=== PATIENT | male | born 1945 | race Caucasian/White ===

== ENCOUNTER 2021-08-28 18:37 | Emergency (ER) | payer OTHER ==
[~2021-08-28] VITALS: Ht 198.1 cm; Wt 97.5 kg
[2021-08-28 18:42] VITALS: BP 152/80
== END 2021-08-28 23:53 ==
LOC: ER 18:37
PROVIDERS: Emergency Medicine
DX: U07.1 COVID-19 (principal); F02.80 Dementia in other diseases classified elsewhere, unspecified severity, without behavioral disturbance, psychotic disturbance, mood disturbance, and anxiety

== ENCOUNTER 2021-08-28 19:15 | Inpatient (IN) | payer OTHER ==
[~2021-08-28] VITALS: Ht 193 cm; Wt 107.0 kg
--- NOTE | 2021-08-29 03:29 | NUR ---
Arrived on the [facility] floor from [facility] accompanied by x1 Staff via wheel chair, transferred to bed 518a, ambulated the 4-5 steps from w/c to bed. Admission DX Unspecified Dementia wiath Behavior Disturbance. Patient is a danger to both himself and others. A&Ox1 to self only. Patient comes from home for agitation and abression toward his , high anxiety. Regular diet, walks independently, may need to use a walker for safety. DNR, His power of transactional attorney is Vannessa Tan, his spouse [phone]. Covid19 PCR in the ER was negative. Great Toes bilat have wounds. No other skin issues noted. Upper denture with patient. Quite hard of hearing, but does not have facundo aides with him. Reports feels safe at home. Will be a high fall risk, and fall safety protocol in place. Bed in low position, bed alarm set. Will continue to monitor for safety and conmfort.
[2021-08-29 09:20] VITALS: BP 115/73
--- NOTE | 2021-08-29 11:00 | NUR ---
Assess due to admit to [facility] with dementia, combative behaviors. Hx anxiety, depression, bipolar, schizophrenia, HLD, GERD, covid. Healthy wt status BMI 26.8 and has eaten 100% of first meal. Did note pt also with bilateral great toe ulcers. Will follow wt and intake for adequacy, otherwise low nutrition risk
[2021-08-29 11:15] VITALS: BP 115/73
--- NOTE | 2021-08-29 12:57 | NUR ---
WOUND CONSULT: THE PATIENT HAS WOUNDS TO THE BILATERAL GREAT TOES. BOTH TOES HAVE AN ABNORMAL VIRIDIANA PROMINENCE. THIS IS MORE PROMINENT ON THE RIGHT. AND PRESSURE IS THE LIKLY ETIOLOGY. THERE IS SOME ERYTHEMA TO THE LEFT GREAT TOE. NO ERYTHEMA ON THE RIGHT. THERE IS A CALLOUS TO THE PERIWOUND. RECOMMENDATIONS; -FOR NOW APPLY AQUACEL AG, WRAP WITH A 2" ROLLED GAUZE, SECURED WITH TAPE. RN PRESENT.
--- NOTE | 2021-08-29 12:58 | NUR ---
RESUMMED CARE FROM OVERNIGHT SHIFT THIS AM, PATIENT IN ROOM LYING QUIET. PATIENT ALERT TO SELF AND YEAR AND MONTH, PATIENT CALM COOPERATIVE. PATIENT ATE BREAKFAST TOOK MEDICATION WITHOUT INCIDENCE. PATIENT DENIES SI/HI/AH/VH AT PRESENT. PATIENTS ABDOMEN SOFT BOWEL SOUNDS PRESENT PATIENTS LUNGS CLEAR. PATIENT HAS SMALL ULCER ON BOTH BIG TOE, WOUND CARE CAME AND BANDAGED TOES. PATIIENT HAS JOINT DEFORMITIES OF BOTH FEET; PATIENT HAS NOT DISPLAYED ANY BEHAVIORS. WILL CONTINUE TO MONITOR PATIENT FOR SAFETY AND BEHAVIORS.
[2021-08-29 13:24] LABS: ABSOLUTE NEUTROPHILS 4.7 thou/uL (1.4-8.2); BASOPHILS 0.4 % (0.0-2.0); EOSINOPHILS 0.3 % (0.0-3.0); HEMATOCRIT 37.7 % (42.0-52.0); HEMOGLOBIN 12.9 gm/dL (14.0-18.0); LYMPHOCYTES 13.4 % (24.0-44.0); MCHC 34.2 g/dL (28.0-37.0); MCV 90.6 fL (80.0-100.0); MONOCYTES 11.9 % (1.0-8.0); PLATELET COUNT 196 thou/uL (150-400); RBC 4.16 mil/uL (4.50-6.00); RDW 13.8 % (10.5-14.5); WBC 6.4 thou/uL (4.0-11.0)
[2021-08-29 13:44] LABS: ALBUMIN 3.1 g/dL (3.4-5.0); ANION GAP 12 mmol/L (7-16); BUN 24 mg/dL (7-18); CALCIUM 8.9 mg/dL (8.5-10.1); CHLORIDE 100 mmol/L (98-107); CHOLESTEROL 122 mg/dL (<200); CO2 26 mmol/L (21-32); CREATININE 1.6 mg/dL (0.7-1.3); GLUCOSE 167 mg/dL (74-106); HDL CHOLESTEROL 61 mg/dL (>40); LDL CHOLESTEROL 40 mg/dL (<100); POTASSIUM 3.4 mmol/L (3.5-5.1); SGOT 19 U/L (15-37); SGPT 26 U/L (30-65); SODIUM 138 mmol/L (136-145); TOTAL BILIRUBIN 0.5 mg/dL (0.2-1.0); TRIGLYCERIDE 109 mg/dL (<150); VLDL 22 mg/dL (<40)
[2021-08-29 19:17] VITALS: BP 122/75
--- NOTE | 2021-08-30 02:54 | NUR ---
ASSUMED CARE ON 08/29/21 @ 1900, A&OX3-4, NOTED TO BE HARD OF HEARING AND DOES NOT HAVE A HEARING AIDE. WEARS A TOP DENTURE. BREATH SHOUNDS CTA BILAT, S1S2 NOTED, ABD N X 4Q, REPORTS BM ON 08/29. DRESSING ON GREAT TOES BILAT C/D/I. LOW FALL RISK AND AMBULATES WITH A FAIRLY STEADY GAIT EVEN WITH GREAT TOES COMPROISED. BED IN LOW POSITION, WILL CONTINUE TO MONITOR FOR SAFETY AND COMFORT PER UNIT PROTOCOL.
[2021-08-30 05:07] LABS: GLYCOHEMOGLOBIN (HGB A1C) 5.4 % (4.8-5.6)
[2021-08-30 09:26] VITALS: BP 110/63
--- NOTE | 2021-08-30 13:25 | NUR ---
REINALDO and Dr. Nickerson attempted to contact the Pt's , Vannessa. There was no answer, a voicemail was left requesting a call back.
--- NOTE | 2021-08-30 13:39 | NUR ---
Wants his shoes. Obtained from locker, laces removed and shoes secured with zip ties. Alert and orientated X3. Denies SI/HI. Breath sounds clear. Open mouth breathing with ambulation, ceases when sitting down. Reg HR auscultated. Color pink with brisk capillary refill and palpable peripheral pulses. +1-[address] edema [address] lower extremities. Dr. Osborne notified of K+ of 3.4. Lasix and 40meq of KCL given PO without difficulty. Independent with voiding. Active bowel sounds over soft, rounded abdomen. States last BM was yesterday. Ulcers to top of great toes, cleaned and dressed by wound care team. Ambulates with regular, steady gait.
--- NOTE | 2021-08-30 15:11 | NUR ---
SW met with the Pt and completed a SLUMS. Pt scored a 10/30 on the SLUMS
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
[2021-08-30 19:21] VITALS: BP 131/82
--- NOTE | 2021-08-30 21:39 | NUR ---
At onset of retail shift supervisor pt was resting in bed asleep. This shift pt was alert and oriented x3. Insight into situation appears slighlty limited. Pt stated he is here because "they wanted to me to come here." Pt is very hard of hearing. Pt was compliant with medication. Pt was calm, pleasant and cooperative. Affect was slightly constricted but made appropriate eye contact. Speech was clear and pt answered questions appropriately. Denied SI, HI and AVH. Pt is high fall risk; fall precautions are in place. Will continue to monitor.
[2021-08-31 10:23] VITALS: BP 139/74
--- NOTE | 2021-08-31 15:32 | NUR ---
Patient is ax0x3, calm, cooperative, and pleasant, ate breakfast in bed, then participate in the group meeting, sat in the dining room, then go back to bedroom. RN changed the dressing on big toe bilaterally. Patient then go back to dining room waiting for dinner to come, good appetite. No pain. voided per toilet, had a bm yesterday, walking without walker.
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
[2021-08-31 19:46] VITALS: BP 117/63
--- NOTE | 2021-08-31 22:15 | NUR ---
At onset of application services manager pt was resting in bed awake. This shift pt was oriented to self, place, and date. Insight into situation is limited. Pt was calm, pleasant, cooperative with care. Compliant with medication and vital signs. Pt requested something to help with left ear pain and tooth pain. Pt stated he has a "couple bad teeth" and "an infected ear." Pt received tylenol for the pain. Pt denied SI, HI and AVH. Pt is low fall risk. Will continue to monitor.
[2021-09-01 09:17] VITALS: BP 141/63
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
--- NOTE | 2021-09-01 13:31 | NUR ---
PATIENT ALERT AND ORIENTED X3 TODAY. WHEN QUESTIONED WHY HE IS IN THE HOSPITAL SEEMS RELUCTANT TO ANSWER. COOPERATIVE WITH MEDS AND ACTIVITIES. DENIES PAIN AFTER TYLENOL GIVEN THIS AM FOR TOOTH/EARACHE. DR AWARE OF C/O EAR PAIN DURING ROUNDS THIS AM.AMBULATING WITHOUT DIFFICULTY. VSS.DREESING CHANGE DONE TO BILAT TOES
[2021-09-01 20:03] VITALS: BP 146/74
--- NOTE | 2021-09-02 00:36 | NUR ---
At onset of shift change pt was sitting in day room watching TV. This shift pt was alert and oriented x3. Insight into situation is limited or pt is guarded. Pt was compliant with vital signs and medications. Pt continues to complain of tooth pain and left ear pain; received tylenol at bed time. Pt denied SI, HI and AVH. Pt is low fall risk. Up ad oswald and independent with ADLs. Will continue to monitor.
[2021-09-02 07:30] VITALS: BP 96/64
--- NOTE | 2021-09-02 15:34 | NUR ---
PT ALERT AND ORIENTED TIMES THREE, FALT AFFECT VERY PICAYUNE. VSS. PT DENIES SI/HI/AH/VH/PAIN/SOA. PT TOLERATES MEDS AND MEALS. PT HAS LITTLE INTERCATION WITH STAFF AND PEERS. PT ATTENDED GROUPS TODAY. WILL CONTINUE TO MONITOR.
[2021-09-02 19:08] VITALS: BP 108/59
--- NOTE | 2021-09-03 05:26 | NUR ---
patient aox3 forgetful at times. patient is orutsararmiut. patient isolative this shift.patient had a flat affect, poor eye contact, poor grooming and hygiene. patient encouraged fluids. patient is continent this shift. patient ambulates with steady gaits. patient in bed asleep at this time breathing regular and unlaboured.
[2021-09-03 09:23] VITALS: BP 122/74
[2021-09-03 09:40] VITALS: BP 122/74
--- NOTE | 2021-09-03 12:01 | NUR ---
RESUMMED CARE FROM OVERNIGHT SHIFT THIS AM, PATIENT IN DAY ROOM QUIET WAITING FOR BREAKFAST. PATIENT ALERT ORIENTED TIMES 2-3 PATIENT DENIES SI/HI/AH/VH AT PRESENT. PATIENT TOOK MEDICATION WITHOUT INCIDENCE; PATIENT WOUNDS ON BOTH BIG TOE CHANGED. PATIENTS ABDOMEN SOFT BOWEL SOUNDS PRESENT, PATIENTS LUNGS CLEAR. PATIENT CALM COOPERATIVE HAS NOT DISPLAYED ANY BEHAVIORS; WILL CONTINUE TO MONITOR PATIENT FOR SAFETY AND BEHAVIORS.
--- NOTE | 2021-09-03 17:44 | NUR ---
Referral sent to the following: [facility]- no beds
[2021-09-03 22:33] VITALS: BP 111/59
--- NOTE | 2021-09-04 05:15 | NUR ---
PT HAS BEEN PLEASANT AND COOPERATIVE THIS SHIFT. HE C/O BACK PAIN EARLIER IN THE NIGHT. TYLENOL GIVEN WITH GOOD RELIEF. DRESSINGS CHANGED TO BILATERAL LARGE TOE ULCERS. PT SLEPT FROM AROUND 2200 UNTIL 0430. HE IS BACK IN BED AT THIS TIME, TRYING TO GET SOME MORE SLEEP. WILL CONTINUE TO MONITOR FURTHER.
--- NOTE | 2021-09-04 09:37 | NUR ---
Followup: remains on [facility] for dementia/behaviors. Continues on regular diet, eating 75-100% of meals. Wound care follows for bilateral great toe diabetic ulcers. Wt stable. Remains low nutrition risk
[2021-09-04 09:53] VITALS: BP 107/65
--- NOTE | 2021-09-04 11:51 | NUR ---
SW sent referrals to the following: [facility]
[2021-09-04 12:30] VITALS: BP 107/65
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
--- NOTE | 2021-09-04 17:03 | NUR ---
REINALDO and Dr. Nickerson called Pt's /DPOA for a family meeting. Vannessa did not answer. A VM was unable to be left due to the voicemail box being full
--- NOTE | 2021-09-04 17:33 | NUR ---
Resummed care @0700; Patient was located in his room, resting comfortably in bed; No S/O acute distress noted; A&O*2; V/S present hypotensive - otherwise stable; Patient denies SI/HI/AVH; Patient complaint of lower back pain, and bilateral great toe tenderness; Patient has 2 bilateral ulcers to the great toes- drsg intact and D/C/I - Cellulitis present; CHAR DUST CLEANER AND SALVAGER notes during assessment Trace bilateral pedal edema; Patient presents [id number]; Patient is heard of hearing, causing communication barrier unless talking right into patients ear; Patient verbalized reading lips makes his hearing better, but everyone always wears the masks. Patient denied SOB-CP; Patient has been particpating in groups and eating meals; Patient is marked as High-Fall risk, although patient is up ad-oswald without difficulties; patient uses furniture to ambulate, and refuses to use a walker per safety; Will continue to monitior per [facility] Protocol;
[2021-09-04 19:16] VITALS: BP 107/53
[2021-09-04 20:07] VITALS: BP 107/58
--- NOTE | 2021-09-04 21:15 | NUR ---
RESUMMED CARE FROM DAY SHIFT THIS EVENING PATIENT IN ROOM LYING QUIETLY. PATIENT ALERT TIMES 3 PATIENT CALM COOPERATIVE, DENIES SI/HI/AH/VH AT PRESENT. PATIENTS ABDOMEN SOFT BOWEL SOUNDS PRESENT PATIENTS LUNGS CLEAR. PATIENT DENIES DEPRESSION OR ANXIETY, PATIENT STATES HE FEELS BETTER. PATIENTS ULCER ON BOTH BIG TOES LOOKING BETTER THEN ON ADMISSION. PATIENT HAS NOT DISPLAYED ANY BEHAVIORS; WILL CONTINUE TO MONITOR PATIENT FOR SAFETY AND BEHAVIORS.
--- NOTE | 2021-09-05 06:33 | NUR ---
PT RESTED WELL THROUGH THE NIGHT.WOUND CARE TO BILATERAL TOES COMPLETED PER ORDERS,TOLERATED.NO SIGNIFICANT CHANGES NOTED AT THIS TIME.
[2021-09-05 10:22] VITALS: BP 95/61
--- NOTE | 2021-09-05 12:04 | NUR ---
PATIENT HAS BEEN UP, AND OUT ON THE UNIT, AMBULATE WITH SLOW STEADY GAIT. PATIENT TOOK ALL MEDICATION WHOLE WITHOUT DIFFICULTY, HE IS EATING MEALS, AND DRINKING FLUID WELL. PATIENT DENIES SUICIDAL/HOMICIDAL IDEATION, HE DENIES DEPRESSION/ANXIETY. PATIENT REPORTS ADEQUATE SLEEP, LAST BOWEL MOVEMENT WAS THIS MORNING PER PATIENT. DRESSING CHANGED TO SHOSHANA GREAT TOE PER ORDER. AFFECT IS BRIGHT, MOOD IS EUTHYMIC. NO SIGN OF ACUTE DISTRESS NOTED AT THIS TIME, WILL MONITOR FOR SAFETY.
--- NOTE | 2021-09-05 16:40 | NUR ---
Referral sent to the following: [facility] and Re[facility]
[2021-09-05 19:15] VITALS: BP 122/72
[2021-09-05 19:25] VITALS: BP 122/72
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
--- NOTE | 2021-09-06 02:19 | NUR ---
PATIENT CARE WAS RESUMED AT 1900. HE WAS IN HIS ROOM AND HE AMBULATES. ABLE TO VERBALIZE NEEDS. LUNGS ARE CLEAR BS ACTIVE X4 QUADS. HE DENIES PAINS/SI/AVH/HI. HE TOOK HIS MEDS WHOLE. DENTURE IN CUP. BED IS LOCKED, LOW AND ALARMED. Q12 MINUTES CHECK IS ONGOING.
[2021-09-06 09:47] VITALS: BP 95/56
--- NOTE | 2021-09-06 10:44 | NUR ---
Alert and orientated to person, place. Denies SI/HI. Calm and compliant. Breath sounds clear. Reg HR auscultated. Color pink with brisk capillary refill and palpable peripheral pulses. +1 edema in ankles. Brief dry. Active bowel sounds over soft, rounded abdomen. States BM yesterday. Ulcers per great toes cleaned and dressed. Ambulates with regular, steady gait.
[2021-09-06 11:18] VITALS: BP 105/90
[2021-09-06 11:46] LABS: CALCIUM 8.8 mg/dL (8.5-10.1); CREATININE 1.3 mg/dL (0.7-1.3); POTASSIUM 3.7 mmol/L (3.5-5.1)
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
[2021-09-06 19:28] VITALS: BP 122/75
--- NOTE | 2021-09-07 04:02 | NUR ---
Assumed care of pt at 1900. Pt calm et cooperative this shift. Took medications whole without difficulty. Ambulates the halls ad oswald with steady gait. Isolated in room most of shift but came out in very early AM et sat in dayroom. VSWNL. Health assessment with no abnormalities noted this shift. Denies SI/HI at present time. Currently resting in chair in dayrom with eyes open. Will continue to monitor per unit protocol.
[2021-09-07 08:46] VITALS: BP 90/56
[2021-09-07 09:39] VITALS: BP 128/62
--- NOTE | 2021-09-07 12:21 | NUR ---
RESUMMED CARE FROM OVERNIGHT SHIFT THIS AM, PATIENT SITTING IN DAY ROOM QUIET. PATIENT ALERT ORIENTED TIMES 3 PATIENT CALM COOPERATIVE. PATIENT ATE LUNCH TOOK MEDICATION WITHOUT INCIDENCE. PATIENTS ABDOMEN SOFT BOWEL SOUNDS PRESENT PATIENTS LUNGS CLEAR. PATIENT DENIES SI/HI/AH/VH AT PRESENT PATIENT PARTICIPATES IN GROUPS. PATIENT HAS NOT DISPLAYED ANY BEHAVIORS WILL CONTINUE TO MONITOR PATIENT FOR SAFETY AND BEHAVIORS.
[2021-09-07 19:44] VITALS: BP 115/70
--- NOTE | 2021-09-08 05:07 | NUR ---
Assumed care of pt at 1900. Pt calm et cooperative this shift. Took medications whole without difficulty. Ambulates the halls ad oswald with steady gait. Isolated in room most of shift. VSWNL. Health assessment with no abnormalities noted at present time. Denies SI/HI at present time. Currently resting in bed with eyes closed. Will continue to monitor per unit protocol.
[2021-09-08 09:57] VITALS: BP 111/69
--- NOTE | 2021-09-08 12:03 | NUR ---
RESUMMED CARE FROM OVERNIGHT SHIFT THIS AM, PATIENT IN DAY ROOM SITTING AT TABLE TALKING TO OTHER PATIENTS. PATIENT ALERT ORIENTED TIMES 3 PATIENT DENIES SI/HI/AH/VH AT PRESENT. PATIENT ATE BREAKFAST TOOK MEDICATION WITHOUT INCIDENCE. PATIENTS ABDOMEN SOFT BOWEL SOUNDS PRESENT PATIENTS LUNGS CLEAR. PATIENT WOUNDS ON BILATERAL BIG TOES CHANGED THIS AM WOUNDS LOOKS GOOOD. PATIENT DENIES ANXIETY OR DEPRESSION PATIENT PARTICIPATED IN GROUPS. PATIENT HAS NOT DISPLAYED ANY BEHAVIORS WILL CONTINUE TO MONITOR PATIENT FOR SAFETY AND BEHAVIORS.
--- NOTE | 2021-09-09 05:57 | NUR ---
Assumed care of pt at 1900. Pt calm et cooperative this shift. Took medications whole without difficulty. Ambulates the halls ad oswald with steady gait. VSWNL. Health assessment with no abnormalities noted at present time. Denies SI/HI at present time. Isolated in room most of shift. Currently resting in bed with eyes closed. Will continue to monitor per unit protocol.
[2021-09-09 09:44] VITALS: BP 116/55
--- NOTE | 2021-09-09 17:38 | NUR ---
CALM AND COOPERATIVE DURING MED PASS AND AM ASSESSMENT WITH THIS NURSE. SPEECH SLOW BUT CLEAR-IS NOTED TO BE HARD OF HEARING MAKING COMMUNICATION DIFFICULT -INDEPENDENT IN ALL ADLS-NEEDS REMINDERS/ENCOURAGEMENT TO COME OUT FOR GROUPS AND DOES WITHDRAW TO ROOM DUIRNG ANY UNSTRUCTURED TIME. DENIES PAIN. GAIT STEADY WITHOUT ASSISTIVE DEVICES. ORIENTED TO PERSON/PLACE AND DATE. CONSTRICTED AFFECT. DENIES ACUTE ANXIETY/SI/SH/HI.
--- NOTE | 2021-09-09 23:43 | NUR ---
PATIENT SAT UP IN DINING ROOM THIS EVENING VISITING WITH OTHER PATIENTS AND WATCHING THE URBANARA GAME. HE WAS CALM AND COOPERATIVE. HE DENIES SI/HI/AVH. HE TOOK HIS MEDS WHOLE WITH WATER. HE WALKS WITH A STEADY GAIT. DENIES PAIN. PATIENT DOES HAVE TRACE TO 1+ EDEMA IN LOWER EXTREMITES BILATERALLY. BED IN LOW POSITION AND BED ALARM IS ON. PATIENT IS A/0X3 TONIGHT. ROUTINE ROUNDS TO ASSESS SAFETY AND STATUS OF PATIENT.
[2021-09-10 06:28] VITALS: BP 116/41
[2021-09-10 12:14] VITALS: BP 116/58
--- NOTE | 2021-09-10 17:38 | NUR ---
Referral sent to Radha Altman and Radha Mendez
[2021-09-10 19:45] VITALS: BP 147/81
[2021-09-10 20:33] VITALS: BP 147/81
--- NOTE | 2021-09-10 20:53 | NUR ---
RESUMMED CARE FROM DAY SHIFT THIS EVENING PATIENT STATED HE WANTED TO GO TO HIS ROOM TO REST. PATIENT ALERT TIMES 3 HE DENIES ANY SI/HI/AH/VH AT PRESENT. PATIENTS ABDOMEN SOFT BOWEL SOUNDS PRESENT PATIENT TALKED WITH HIS THIS EVENING. PATIENT IS CALM COOPERATIVE DOES INTERACT WITH OTHER PATIENTS. PATIENT TOOK MEDICATION WITHOUT INCIDENCE PATIENTS WOUNDS CHANGED WOUND CARE CAME TO LOOK AT WOUNDS ON BOTH BIG TOES. DR SOLANO STATES IT LOOKS GOOD PATIENT HAS NOT DISPLAYED ANY BEHAVIORS. HE WENT TO BED EARLY AND IS SLEEPING WILL CONTINUE TO MONITOR PATIENT FOR SAFETY AND BEHAVIORS.
--- NOTE | 2021-09-11 07:55 | NUR ---
RT Progress Note- Jaden continues to be present in the milieu throughout each day and will converse with peers who engage him. Jaden's active participation in recreational groups remains moderate d/t his hearing impairment and difficulty communicating with those he cannot hear well. Modifications have been provided; moving speaker closer to him, sitting him near group supervisor yard. FRONT DESK ASSOCIATE will continue to encourage patient participation in the milieu and groups.
--- NOTE | 2021-09-11 09:49 | NUR ---
Followup: continues to eat >75% of meals on a consistent basis. Wts up slightly. Wound care follows for bilateral great toe diabetic ulcers. Remains low nutrition risk
--- NOTE | 2021-09-11 09:56 | NUR ---
Alert and orientated X4. Denies SI/HI. Calm, cooperative and compliant with meds. Breath sounds clear. Reg HR auscultated. Color pink with brisk capillary refill and palpable peripheral pulses. +2 edema per lower extremities. Independent with voiding. Active bowel sounds over soft, rounded abdomen. Ambulates with regular gait. Ulcers per great toes cleaned and dressed. Participating in group this AM.
--- NOTE | 2021-09-11 16:23 | NUR ---
REINALDO faxed referrals to the following [facility]- due to high behaviors at facility, no [facility]
[2021-09-11 19:30] VITALS: BP 98/51
--- NOTE | 2021-09-12 03:17 | NUR ---
PATIENT CARE WAS RESUMED AT 1900. HE IS ALERT AND WAS INHIS ROOM HE TOOK HIS MEDS WHOLE. DENIES PAINS/SI/AVH/HI HE IS CONTINENT. ABLE TO VERBALIZE HER NEEDS SHE HE TOOK HIS MEDS WHOLE. LUNGS ARE CLEAR, BS ACTIVE X4 QUADS. BED IS LOW. LOCKED AND ALARMED. Q12 MINUTES CHECK IS ACTIVE. CONTINUE CARE
[2021-09-12 10:05] VITALS: BP 105/60
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
--- NOTE | 2021-09-12 16:29 | NUR ---
Phone call received from Tip Macdonald ([phone]), worker with [employer] of [employer], Division of Aging. Mr. Macdonald reported to having a case with the patient. The patient was brought into the office to speak with Mr. Macdonald. Mr. Macdonald inquired about discharge. The SW informed Mr. Macdonald that discharge has not been set as placement has not been identified. The patient struggled with hearing Mr. Renae shelby with the phone directly to his ear. The SW wrote the questions for the patient to read. The patient stated he wanted to remain here until placement has been located. Patient was polite.
--- NOTE | 2021-09-12 17:27 | NUR ---
Referral sent to: [facility]
[2021-09-12 19:21] VITALS: BP 125/61
[2021-09-12 20:00] VITALS: BP 125/61
--- NOTE | 2021-09-12 22:59 | NUR ---
PATIENT WAS IN BED SLEEPING WHEN I ASSUMED PT CARE AT 1900. HE DID COME OUT A COUPLE OF TIMES TO THE DINING ROOM. HE HAD HS SNACK. HE DENIES PAIN, SI/HI/AVH. HE IS VERY VERY SYCU[place] AND I HAVE TO SHOUT IN HIS EAR FOR HIM TO HEAR ME. HE HAS BEEN CALM AND PLEASANT. HE IS A/0X3-4. HE TOOK HIS MEDS WHOLE WITH WATER. HE AMBULATES WITH A STEADY GAIT. HE HAS STAYED TO HIMSELF TONIGHT. NO BEHAVIORS. ROUTINE ROUNDS TO ASSESS SAFETY AND STATUS OF PATIENT.
[2021-09-13 06:10] LABS: HEMATOCRIT 36.1 % (42.0-52.0); HEMOGLOBIN 12.1 gm/dL (14.0-18.0); MCH 31.6 pg (26.0-34.0); MCHC 33.4 g/dL (28.0-37.0); MCV 94.5 fL (80.0-100.0); RBC 3.82 mil/uL (4.50-6.00); RDW 14.2 % (10.5-14.5); WBC 4.4 thou/uL (4.0-11.0)
[2021-09-13 06:23] LABS: CALCIUM 8.9 mg/dL (8.5-10.1); CREATININE 1.3 mg/dL (0.7-1.3); MAGNESIUM 2.1 mg/dL (1.8-2.4); POTASSIUM 3.7 mmol/L (3.5-5.1)
[2021-09-13 08:35] VITALS: BP 125/61
--- NOTE | 2021-09-13 09:16 | NUR ---
RESUMMED CARE FROM OVERNIGHT SHIFT THIS AM PATIENT SITTING IN DAY ROOM QUIET. PATIENT ATE BREAKFAST TOOK MEDICATION WITHOUT INCIDENCE PATIENT ALERT TIMES 3. PATIENT CALM COOPERATIVE DENIES SI/HI/AH/VH AT TIMES, PATIENT DENES DEPRESSION OR ANXIETY. PATIENTS WOUNDS ON BIG TOES CHANGED WOUNDS LOOK GOOD NO DRAINAGE. PATIENTS ABDOMEN SOFT BOWEL SOUNDS PRESENT PATIENTS LUNGS CLEAR. WILL CONTINUETO MONITOR PATIENT FOR SAFETY AND BEHAVIORS.
[2021-09-13 09:24] VITALS: BP 99/53
--- NOTE | 2021-09-13 17:23 | NUR ---
REINALDO spoke with Xiomara at [facility]. Pt has been accepted. Xiomara stated they can't accept the Pt until Friday. Discharge was set for 09/17/2021 @10am.
[2021-09-13 19:40] VITALS: BP 99/53
--- NOTE | 2021-09-14 00:05 | NUR ---
[facility] WAS REWSUMED AT 1900. HE IS AWAKE LAYING IN BED IN HIS ROOM CALMLY WITH EYES OPEN. HE IS ABLE TO VERBALIZED NEEDS. HE DENIES PAINS/SI /AVH/HI. HE TOOK HIS MEDS WHOLE, AND HE DENIES ANY DISCOMFORT AT THIS TIME. LUNGS ARE CLEAR BS ACTIVE X4 QUAD. BS ACTIVE X4 QUADS. HE IS CONTINENT OF BOWEL AND BLADDER. BED IS LOW, LOCKED AND ALARMED. [id number] CHECK IS ONGOING
[2021-09-14 09:34] VITALS: BP 117/67
--- NOTE | 2021-09-14 12:12 | NUR ---
COOPERATIVE AND PLEASANT THIS AM. WITHDRAWS TO ROOM AFTER MEALS BUT WILL COME OUT FOR GROUP WITH QUEING FROM STAFF. MINIMALLY SOCIAL WITH PEER GROUPD/T HEARING LOSS.IS COOPERATIVE WITH STAFF. APPRECIATIVE OF ASSISTANCE PROVIDED. GAIT STEADY-NO NOTED OR REPORTED PSYCHOSIS. DOES REPORT FEELING ANXIOUS RE "WHERE IM GOING FROM HERE"DENIES DEPRESSIVE SYMPTOMS OR SI/SH/HI.
--- NOTE | 2021-09-14 17:48 | NUR ---
REINALDO did contact Vannessa concerning the discharge. Vannessa did not answer and a message requesting a call back was left. As of this note, there has been no call back. REINALDO also contacted the Tip Macdonald, , the [place] Department [employer] window caser concerning the discharge. REINALDO left a message for a call back on the matter.
--- NOTE | 2021-09-14 18:39 | NUR ---
ASKING ABOUT NEW PLACEMENT STATES HE WAS TOLD TODAY WHERE HE WOULD BE GOING BUT WAS NOT SURE WHERE TOWN WAS LOCATED OR HOW BIG IT WAS,HOW FAR AWAY FROM HIS FAMILY ETC. DID ATTEMPT TO PULL UP INFO ONLINE WITH PLAN TO USE TABLET TO SHOW PICTURES OF TO DECREASE ANXIETY/FEAR UNABLE TO LOCATE TABLET AT NURSING STATION.
[2021-09-14 19:15] VITALS: BP 105/49
--- NOTE | 2021-09-15 02:24 | NUR ---
[facility] CARE WAS RESUMED AT 1900. HE IS ALERT AND HE AMBULATES VERY GOOD. DENIES PAINS/SI/AVH/HI. LUNGS ARE CLEAR BS ACTIVE X4 QUADS. HE DID HAD HIS DOUBLE PORTION TRAY THIS SHIFT.HE IS CONTINENT OF BOWEL AND BLADDER. TOOK HIS MEDS WHOLE. VITAL SIGN WNL. BED IS LOW, LOCKED AND ALARMED. [id number] CHECK ACTIVE AND ONGOING. CONTINUE CARE
[2021-09-15 08:52] VITALS: BP 104/63
--- NOTE | 2021-09-15 09:50 | NUR ---
Medication list and notes faxed to [facility] for the patient.
--- NOTE | 2021-09-15 13:01 | NUR ---
Alert and orientated X4. Denies SI/HI. Calm, cooperative and coherent. Denies SI/HI. Talked with after lunch. Breath sounds clear. Reg HR auscultated. Color pink with brisk capillary refill and palpable peripheral pulses. Independent with voiding. Smear of brown stool on brief. Active bowel sounds over soft, rounded abdomen. Ambulates with regular, steady gait. Ulcers cleaned and dressed, SABI hose applied.
[2021-09-15 19:33] VITALS: BP 109/62
--- NOTE | 2021-09-16 05:50 | NUR ---
At onset of night supervisor pt was sitting in day room watching TV. This shift pt was alert and oriented x4. Pt was compliant with vital signs and medications. Pt spoke with his Rossy over the phone; phone call appeared calm and pleasant. Pt denied SI, HI and AVH. Pt asked RN if RN knew anything about "this new place." RN explained she did not know about the shelter. Pt stated he is okay with moving there, but he has liked [facility] stating "the food is good and the help is nice." Pt is low fall risk. Will continue to monitor. Pt slept poorly. He woke up approx 4 times during the night and comes out of his room to sit in the day room for a short period of time before returning back to bed.
[2021-09-16 09:16] VITALS: BP 108/65
[2021-09-16 09:30] VITALS: BP 108/65
--- NOTE | 2021-09-16 13:35 | NUR ---
Assumed pt care from overnight shift this am. Pt presented alert and oriented to self and place during this time. Pt voiced that he was tired, and went to sleep after breakfast, then allowed staff to do his assessment shortly thereafter. Pt denied depression and anxiety during this time. Pt also denied hallucinations/si/hi. Pt denied pain at this time, though did grimace slightly during dressing change on big toes bilaterally. Dressings changed, dated, and new socks put on pt. Pt still presents with marcio hose on lower extremities, though has +1 edema at this time. All medications taken without issue and well tolerated. Lung sounds clear. Bowel sounds active. Joined groups throughout day and interacted with peers. No further concerns.
[2021-09-16 19:17] VITALS: BP 132/59
--- NOTE | 2021-09-16 22:55 | NUR ---
PHONE CALL WITH ROSSY This RN spoke with Rossy at approx 2115. Rossy stated the pt told her he would be moving tomorrow to an assisted living place. Rossy stated she did not about this and had questions about where he would be going. Rossy wanted to know how long pt would be staying at assisted living. Rossy stated that the pt still has his house in [place], [place] and his dog is still there. Rossy is living in the house but she has also been accepted to an assisted living home. Rossy stated she will call tomorrow after 0900 to speak to the social science instructor and the doctor.
--- NOTE | 2021-09-16 23:00 | NUR ---
At onset of bread wrapper pt was awake sitting in the day room watching TV. This shift pt was alert and oriented x3-4. At times pt forgets what time of day it is and will ask when breakfast is at night. Pt was compliant with medication and vital signs. RN removed pt's marcio hose over night. RN changed pt into clean clothes and washed pt's jeans. Pt knows he is leaving tomorrow. Pt denied all psych questions. Pt is low fall risk, but pt was observed losing his balance a little while walking around chairs in the dayroom. Will continue to monitor.
[2021-09-17] MEDS ORDERED: LORATIDINE 10 M10 M1 PO (08:46)
[2021-09-17] MEDS ORDERED: FLOMAX0.4 MG PO (08:46)
[2021-09-17] MEDS ORDERED: ATORVASTATIN CA20 MG PO (08:47)
[2021-09-17] MEDS ORDERED: DIVALPROEX SOD250 M1 PO (08:49)
[2021-09-17] MEDS ORDERED: TRAZODONE HCL100 MG PO (08:50)
[2021-09-17] MEDS ORDERED: PROTONIX40 M4 PO (08:51)
[2021-09-17 09:23] VITALS: BP 126/66
[2021-09-17 09:26] VITALS: BP 126/66
--- NOTE | 2021-09-17 13:53 | NUR ---
Assumed pt care from overnight shift this am. Pt presented pleasant and restless to go to long-term during this time. Pt denied depression and anxiety when asked. Pt denied hallucinations. Pt denied si/hi at this time. Pt voiced no pain. When informed of discharge, pt stated that he was excited and wanted to call his . and DPKERRIE Hurd was called. Nursing spoke to at this time, informing her of pt discharge, facility, and time, giving the name, address, and phone number of facility. Verbal consent obtained for discharge. Phone then given to Jaden to speak to . Report called in to facility @ 1123 for pt discharge. All belongings given to pt at discharge, and pt transported in wheelchair via [facility] and staff assistance. No further concerns.
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
== END 2021-09-17 11:30 | DRG 57 ==
LOC: SBH 19:15
PROVIDERS: Hospitalist; Internal Medicine; Nurse Practitioner Psychiatric/Mental Health; ADMIT Psychiatry & Neurology Psychiatry; ATTEND Psychiatry & Neurology Psychiatry
DX: G30.9 Alzheimer's disease, unspecified (principal); E44.1 Mild protein-calorie malnutrition; L03.116 Cellulitis of left lower limb; F01.51 Vascular dementia, unspecified severity, with behavioral disturbance; F02.81 Dementia in other diseases classified elsewhere, unspecified severity, with behavioral disturbance; L97.529 Non-pressure chronic ulcer of other part of left foot with unspecified severity; L97.519 Non-pressure chronic ulcer of other part of right foot with unspecified severity; J44.9 Chronic obstructive pulmonary disease, unspecified; E78.5 Hyperlipidemia, unspecified; K21.9 Gastro-esophageal reflux disease without esophagitis; N40.0 Benign prostatic hyperplasia without lower urinary tract symptoms; F32.9 Major depressive disorder, single episode, unspecified; F41.9 Anxiety disorder, unspecified; G47.00 Insomnia, unspecified; I10 Essential (primary) hypertension; E11.42 Type 2 diabetes mellitus with diabetic polyneuropathy; E11.622 Type 2 diabetes mellitus with other skin ulcer; R53.81 Other malaise; Z86.14 Personal history of Methicillin resistant Staphylococcus aureus infection; Z81.8 Family history of other mental and behavioral disorders; Z23 Encounter for immunization
CPT/HCPCS: 10880